=== PATIENT | female | born 1935 | race Caucasian/White ===

== ENCOUNTER 2017-06-08 18:57 | Inpatient (IN) | payer OTHER ==
[~2017-06-08] VITALS: Ht 170.2 cm; Wt 122.5 kg
[2017-06-08] MEDS ORDERED: SERT25TA3 PO (19:39)
[2017-06-08] MEDS ORDERED: POTA10TA31 PO (19:39)
[2017-06-08] MEDS ORDERED: SERT100T5 PO (19:39)
[2017-06-08] MEDS ORDERED: MINE120C TP (19:39)
[2017-06-08] MEDS ORDERED: METO25TA91 PO (19:39)
[2017-06-08] MEDS ORDERED: FESO8TAB PO (19:39)
[2017-06-08] MEDS ORDERED: ASPI-515 PO (19:39)
[2017-06-08] MEDS ORDERED: LEVO25TA4 PO (19:39)
[2017-06-08] MEDS ORDERED: FURO20TA3 PO (19:39)
[2017-06-08] MEDS ORDERED: NABU500T PO (19:39)
[2017-06-08] MEDS ORDERED: ACET-1757 PO (19:39)
[2017-06-08] MEDS ORDERED: CHOL2000 PO (19:39)
[2017-06-08] MEDS ORDERED: CALCIUM 600 PO (19:39)
[2017-06-08] MEDS ORDERED: HYDR-3237 PO (19:39)
[2017-06-08 19:47] LABS: BASOPHILS # (AUTO) 0.04 x10^3/uL (0-0.1); BASOPHILS % (AUTO) 0 % (0-1); EOSINOPHILS # (AUTO) 0.21 x10^3/uL (0-0.4); EOSINOPHILS % (AUTO) 2 % (1-7); LYMPHOCYTES # (AUTO) 1.09 x10^3/uL (1-3.4); LYMPHOCYTES % (AUTO) 9 % (22-44); MD NO; MEAN CORPUSCULAR HEMOGLOBIN 20.6 pg (27.0-34.8); MEAN CORPUSCULAR HGB CONC 31.2 g/dL (32.4-35.8); MEAN CORPUSCULAR VOLUME 66.1 fL (80-100); MEAN PLATELET VOLUME 8.7 fL (7.4-10.4); MONOCYTES # (AUTO) 0.85 x10^3/uL (0.2-0.8); MONOCYTES % (AUTO) 7 % (2-9); NEUTROPHILS # (AUTO) 9.48 x10^3/uL (1.8-6.8); NEUTROPHILS % (AUTO) 81 % (42-75); PLATELET COUNT 274 x10^3/uL (130-400); RED BLOOD COUNT 4.49 x10^6/uL (3.82-5.3); RED CELL DISTRIBUTION WIDTH 18.4 % (9.6-15.2)
[2017-06-08 19:58] LABS: ALBUMIN 3.3 g/dL (3.4-5.0); ANION GAP 8 mmol/L (5-15); CALCIUM 8.5 mg/dL (8.5-10.1); CHLORIDE 108 mmol/L (98-107)
[2017-06-08] MEDS ORDERED: NITR1PAT24 TD (19:59)
[2017-06-08 20:03] LABS: ALANINE AMINOTRANSFERASE 22 U/L (12-78); ALKALINE PHOSPHATASE 103 U/L (45-117); BILIRUBIN,TOTAL 0.8 mg/dL (0.2-1.0); CREATININE 1.23 mg/dL (0.55-1.02); TOTAL PROTEIN 7.4 g/dL (6.4-8.2)
[2017-06-08 20:08] LABS: CULTURE INDICATED? YES; MICROSCOPIC INDICATED
[2017-06-08] MEDS ORDERED: POTASSIUM CHLORIDE 20 MEQ TAB.ER.PRT PO ONE (20:30)
[2017-06-08] MEDS ORDERED: SODIUM CHLORIDE 0.9% 1,000ML IVBOLUS ONE (21:00)
[2017-06-08 22:44] LABS: FREE T4 (FREE THYROXINE) 1.56 ng/dL (0.76-1.46); THYROID STIMULATING HORMONE 2.03 mIU/L (0.358-3.740)
[2017-06-08] MEDS ORDERED: CEFTRIAXONE PMX 1GM/50ML 50 ML IV ONE (23:00)
[2017-06-08] MEDS ORDERED: OMNIPAQUE 350 MG/ML, 100ML BOTTLE ONE (23:00)
[2017-06-08] MEDS ORDERED: CEFTRIAXONE PMX 1GM/50ML 50 ML ONE (23:08)
[2017-06-08] MEDS ORDERED: POTASSIUM CHLORIDE 20 MEQ TAB.ER.PRT ONE (23:09)
[2017-06-08] MEDS ORDERED: ACETAMINOPHEN 325 MG TABLET PO PRN (23:30)
[2017-06-08] MEDS ORDERED: ONDANSETRON ODT 4 MG PO PRN (23:30)
[2017-06-08] MEDS ORDERED: ENOXAPARIN 40 MG/0.4 ML SQ SCH (23:30)
[2017-06-08] MEDS ORDERED: hydrALAzine 20 MG/ML, 1ML IVPush PRN (23:30)
[2017-06-08] MEDS ORDERED: DOCUSATE 100 MG CAPSULE PO PRN (23:30)
[2017-06-09] VITALS (8 sets, daily range): BP systolic 138–157; BP diastolic 54–81
[2017-06-09] MEDS: FUROSEMIDE 40 MG/4 ML IV SCH ×3 (00:26→17:00)
[2017-06-09] MEDS: HYDROcodone/APAP 5/325 TABLET PO SCH ×3 (00:26→18:18)
[2017-06-09 00:53] LABS: % IRON SATURATION 4 % (20-55); IRON LEVEL 15 mcg/dL (50-170); TOTAL IRON BINDING CAPACITY 396 mcg/dL (250-450)
[2017-06-09 08:08] LABS: INTERNATIONAL NORMALIZED RATIO 1.11 (0.93-1.1); PROTHROMBIN TIME 11.5 Seconds (9.6-11.5)
[2017-06-09 08:12] LABS: ANION GAP 10 mmol/L (5-15); CALCIUM 7.9 mg/dL (8.5-10.1); CHLORIDE 109 mmol/L (98-107); CREATININE 1.01 mg/dL (0.55-1.02)
[2017-06-09 08:13] LABS: BASOPHILS # (AUTO) 0.03 x10^3/uL (0-0.1); BASOPHILS % (AUTO) 0 % (0-1); EOSINOPHILS # (AUTO) 0.39 x10^3/uL (0-0.4); EOSINOPHILS % (AUTO) 5 % (1-7); LYMPHOCYTES # (AUTO) 1.04 x10^3/uL (1-3.4); LYMPHOCYTES % (AUTO) 14 % (22-44); MD NO; MEAN CORPUSCULAR HEMOGLOBIN 20.2 pg (27.0-34.8); MEAN CORPUSCULAR HGB CONC 30.6 g/dL (32.4-35.8); MEAN CORPUSCULAR VOLUME 66.2 fL (80-100); MEAN PLATELET VOLUME 8.6 fL (7.4-10.4); MONOCYTES # (AUTO) 0.79 x10^3/uL (0.2-0.8); MONOCYTES % (AUTO) 11 % (2-9); NEUTROPHILS # (AUTO) 5.14 x10^3/uL (1.8-6.8); NEUTROPHILS % (AUTO) 70 % (42-75); PLATELET COUNT 246 x10^3/uL (130-400); RED CELL DISTRIBUTION WIDTH 18.9 % (9.6-15.2)
[2017-06-09] MEDS: CHOLECALCIFEROL 1,000 UNIT TABLET PO SCH (09:00)
[2017-06-09] MEDS: NABUMETONE 500 MG TABLET PO SCH ×2 (09:00→22:39)
[2017-06-09] MEDS: LEVOTHYROXINE 25 MCG TABLET PO SCH (09:00)
[2017-06-09] MEDS: CALCIUM CITRATE 950 MG TABLET PO SCH (09:00)
[2017-06-09] MEDS: OXYBUTYNIN CHLORIDE 5 MG TABLET PO SCH ×2 (09:00→18:18)
[2017-06-09] MEDS: SERTRALINE 100MG TABLET PO SCH ×2 (09:00→23:10)
[2017-06-09] MEDS: POTASSIUM CHLORIDE 10 MEQ TABLET.ER PO SCH ×3 (09:00→22:39)
[2017-06-09] MEDS: METOPROLOL SUCCINATE 25 MG TAB.ER.24H PO SCH (09:00)
[2017-06-09] MEDS: ASPIRIN 81 MG TABLET EC PO SCH (09:00)
[2017-06-09] MEDS ORDERED: POTASSIUM CHLORIDE 40 MEQ in SODIUM CHLORIDE 0.9% 500 ML IV ONE (10:30)
[2017-06-09] MEDS ORDERED: NALOXONE 1 MG/ML, 2ML ONE (14:31)
[2017-06-09] MEDS ORDERED: FENTANYL PF 100 MCG/2ML ONE (14:31)
[2017-06-09] MEDS ORDERED: FLUMAZENIL 0.1 MG/1 ML, 5ML ONE (14:31)
[2017-06-09] MEDS ORDERED: MIDAZOLAM 1 MG/ML, 5ML ONE (14:31)
[2017-06-09] MEDS ORDERED: LIDOCAINE-MPF 1%, 5ML ONE (14:32)
[2017-06-09 18:25] LABS: CREATININE,URINE RANDOM 53.4 mg/dL
[2017-06-09] MEDS: CEFTRIAXONE PMX 1GM/50ML 50 ML IV SCH (22:39)
[2017-06-09] MEDS: POTASSIUM CHLORIDE 10% 20 MEQ/15 ML UDC PO SCH (23:00)
[2017-06-09] MEDS ORDERED: POTASSIUM CHLORIDE 10% 40 MEQ/30 ML UDC ONE ×2 (23:00→23:01)
[2017-06-10 00:03] VITALS: BP 148/71
[2017-06-10] MEDS: HYDROcodone/APAP 5/325 TABLET PO SCH ×3 (02:00→21:45)
[2017-06-10 05:26] LABS: BASOPHILS # (AUTO) 0.05 x10^3/uL (0-0.1); BASOPHILS % (AUTO) 1 % (0-1); EOSINOPHILS # (AUTO) 0.41 x10^3/uL (0-0.4); EOSINOPHILS % (AUTO) 5 % (1-7); LYMPHOCYTES # (AUTO) 1.22 x10^3/uL (1-3.4); LYMPHOCYTES % (AUTO) 15 % (22-44); MD NO; MEAN CORPUSCULAR HEMOGLOBIN 20.9 pg (27.0-34.8); MEAN CORPUSCULAR HGB CONC 31.2 g/dL (32.4-35.8); MEAN PLATELET VOLUME 8.2 fL (7.4-10.4); MONOCYTES # (AUTO) 0.92 x10^3/uL (0.2-0.8); MONOCYTES % (AUTO) 11 % (2-9); NEUTROPHILS # (AUTO) 5.71 x10^3/uL (1.8-6.8); NEUTROPHILS % (AUTO) 69 % (42-75); PLATELET COUNT 220 x10^3/uL (130-400); RED BLOOD COUNT 4.44 x10^6/uL (3.82-5.3); RED CELL DISTRIBUTION WIDTH 18.9 % (9.6-15.2)
[2017-06-10 05:40] LABS: ANION GAP 10 mmol/L (5-15); CALCIUM 8.4 mg/dL (8.5-10.1); CHLORIDE 107 mmol/L (98-107)
[2017-06-10 05:47] LABS: CREATININE 0.99 mg/dL (0.55-1.02)
[2017-06-10] MEDS: LEVOTHYROXINE 25 MCG TABLET PO SCH (05:51)
[2017-06-10] MEDS ORDERED: POTASSIUM CHLORIDE 20 MEQ TAB.ER.PRT PO ONE (06:30)
[2017-06-10 08:00] VITALS: BP 116/67
[2017-06-10] MEDS: METOPROLOL SUCCINATE 25 MG TAB.ER.24H PO SCH (09:00)
[2017-06-10] MEDS: ASPIRIN 81 MG TABLET EC PO SCH (09:00)
[2017-06-10] MEDS ORDERED: POTASSIUM CHLORIDE 20 MEQ PACKET ONE (09:52)
[2017-06-10] MEDS ORDERED: AMIODARONE 150 MG in DEXTROSE 5% 100 ML IV ONE (10:00)
[2017-06-10] MEDS ORDERED: FILTER 0.22 MICRON IV ONE (10:00)
[2017-06-10] MEDS ORDERED: AMIODARONE 50 MG/ML, 3ML IVPush ONE (10:00)
[2017-06-10] MEDS: CHOLECALCIFEROL 1,000 UNIT TABLET PO SCH (10:08)
[2017-06-10] MEDS: NABUMETONE 500 MG TABLET PO SCH ×2 (10:09→21:45)
[2017-06-10] MEDS: CALCIUM CITRATE 950 MG TABLET PO SCH (10:10)
[2017-06-10] MEDS: SERTRALINE 100MG TABLET PO SCH (10:11)
[2017-06-10] MEDS: FUROSEMIDE 20 MG/2 ML IV SCH ×2 (10:18→18:36)
[2017-06-10] MEDS ORDERED: POTASSIUM CHLORIDE 20 MEQ TAB.ER.PRT ONE (10:24)
[2017-06-10] MEDS: AMIODARONE 200 MG TABLET PO SCH ×2 (10:40→23:54)
[2017-06-10] MEDS: POTASSIUM CHLORIDE 10% 20 MEQ/15 ML UDC PO SCH ×2 (10:40→21:45)
[2017-06-10 14:30] VITALS: BP 110/62
[2017-06-10] MEDS ORDERED: FERROUS SULFATE 325 MG TABLET PO SCH (17:00)
[2017-06-10 20:18] VITALS: BP 107/73
[2017-06-10] MEDS: CEFTRIAXONE PMX 1GM/50ML 50 ML IV SCH (21:45)
[2017-06-10] MEDS ORDERED: DOCUSATE 50 MG/5 ML, 10ML UDC PO PRN (23:30)
[2017-06-11 02:42] VITALS: BP 144/82
[2017-06-11] MEDS: HYDROcodone/APAP 5/325 TABLET PO SCH (05:00)
[2017-06-11 05:35] LABS: BASOPHILS # (AUTO) 0.07 x10^3/uL (0-0.1); BASOPHILS % (AUTO) 1 % (0-1); EOSINOPHILS # (AUTO) 0.54 x10^3/uL (0-0.4); EOSINOPHILS % (AUTO) 7 % (1-7); LYMPHOCYTES # (AUTO) 1.72 x10^3/uL (1-3.4); LYMPHOCYTES % (AUTO) 21 % (22-44); MD NO; MEAN CORPUSCULAR HEMOGLOBIN 20.8 pg (27.0-34.8); MEAN CORPUSCULAR HGB CONC 30.8 g/dL (32.4-35.8); MEAN CORPUSCULAR VOLUME 67.5 fL (80-100); MEAN PLATELET VOLUME 9.5 fL (7.4-10.4); MONOCYTES # (AUTO) 1.06 x10^3/uL (0.2-0.8); MONOCYTES % (AUTO) 13 % (2-9); NEUTROPHILS # (AUTO) 4.83 x10^3/uL (1.8-6.8); NEUTROPHILS % (AUTO) 59 % (42-75); PLATELET COUNT 232 x10^3/uL (130-400); RED BLOOD COUNT 4.13 x10^6/uL (3.82-5.3)
[2017-06-11 05:57] LABS: CHLORIDE 109 mmol/L (98-107)
[2017-06-11 06:19] LABS: ANION GAP 8 mmol/L (5-15); CALCIUM 8.6 mg/dL (8.5-10.1)
[2017-06-11 07:51] VITALS: BP 128/97
[2017-06-11] MEDS: METOPROLOL SUCCINATE 25 MG TAB.ER.24H PO SCH (08:30)
[2017-06-11] MEDS: ASPIRIN 81 MG TABLET EC PO SCH (08:30)
[2017-06-11] MEDS: AMIODARONE 200 MG TABLET PO SCH ×2 (08:59→22:16)
[2017-06-11] MEDS: NABUMETONE 500 MG TABLET PO SCH ×2 (08:59→22:15)
[2017-06-11] MEDS: FUROSEMIDE 20 MG/2 ML IV SCH (08:59)
[2017-06-11] MEDS: CHOLECALCIFEROL 1,000 UNIT TABLET PO SCH (08:59)
[2017-06-11] MEDS: POTASSIUM CHLORIDE 10% 20 MEQ/15 ML UDC PO SCH ×2 (09:00→22:26)
[2017-06-11] MEDS ORDERED: FERROUS SULFATE 220 MG/5 ML ORAL SOL PO SCH (09:00)
[2017-06-11] MEDS: HYDROcodone/APAP 7.5-325MG/15ML UDC PO SCH ×3 (09:00→22:15)
[2017-06-11] MEDS: CALCIUM CITRATE 950 MG TABLET PO SCH (10:05)
[2017-06-11 13:07] VITALS: BP_SYST 110; BP_SYST 144; BP_DIAS 101; BP_DIAS 65
[2017-06-11] MEDS: METOPROLOL TARTRATE 25 MG TABLET PO SCH (17:05)
[2017-06-11 19:58] VITALS: BP 133/78
[2017-06-12 00:59] VITALS: BP 117/73
[2017-06-12] MEDS: CEFTRIAXONE PMX 1GM/50ML 50 ML IV SCH ×2 (02:58→23:12)
[2017-06-12 05:37] LABS: BASOPHILS # (AUTO) 0.04 x10^3/uL (0-0.1); BASOPHILS % (AUTO) 0 % (0-1); EOSINOPHILS # (AUTO) 0.58 x10^3/uL (0-0.4); EOSINOPHILS % (AUTO) 6 % (1-7); LYMPHOCYTES # (AUTO) 1.48 x10^3/uL (1-3.4); LYMPHOCYTES % (AUTO) 16 % (22-44); MD NO; MEAN CORPUSCULAR HEMOGLOBIN 20.9 pg (27.0-34.8); MEAN CORPUSCULAR HGB CONC 30.9 g/dL (32.4-35.8); MEAN CORPUSCULAR VOLUME 67.6 fL (80-100); MEAN PLATELET VOLUME 9.2 fL (7.4-10.4); MONOCYTES # (AUTO) 0.96 x10^3/uL (0.2-0.8); MONOCYTES % (AUTO) 10 % (2-9); NEUTROPHILS # (AUTO) 6.17 x10^3/uL (1.8-6.8); NEUTROPHILS % (AUTO) 67 % (42-75); PLATELET COUNT 233 x10^3/uL (130-400); RED BLOOD COUNT 4.15 x10^6/uL (3.82-5.3); RED CELL DISTRIBUTION WIDTH 18.9 % (9.6-15.2)
[2017-06-12 05:42] LABS: ANION GAP 6 mmol/L (5-15); CALCIUM 8.5 mg/dL (8.5-10.1); CHLORIDE 109 mmol/L (98-107)
[2017-06-12 05:43] LABS: CREATININE 1.01 mg/dL (0.55-1.02)
[2017-06-12] MEDS: METOPROLOL TARTRATE 25 MG TABLET PO SCH ×2 (06:22→17:25)
[2017-06-12 07:39] VITALS: BP 140/79
[2017-06-12] MEDS ORDERED: FUROSEMIDE 10 MG/ML ORAL SOL PO SCH (09:00)
[2017-06-12] MEDS: ASPIRIN 81 MG TABLET EC PO SCH (09:00)
[2017-06-12] MEDS: HYDROcodone/APAP 7.5-325MG/15ML UDC PO SCH ×3 (09:00→21:50)
[2017-06-12] MEDS: CHOLECALCIFEROL 1,000 UNIT TABLET PO SCH (09:07)
[2017-06-12] MEDS: SERTRALINE 100MG TABLET PO SCH (09:07)
[2017-06-12] MEDS: NABUMETONE 500 MG TABLET PO SCH ×2 (09:07→21:49)
[2017-06-12] MEDS: CALCIUM CITRATE 950 MG TABLET PO SCH (09:08)
[2017-06-12] MEDS: AMIODARONE 200 MG TABLET PO SCH ×2 (09:08→21:49)
[2017-06-12] MEDS: POTASSIUM CHLORIDE 10% 20 MEQ/15 ML UDC PO SCH ×2 (09:08→21:00)
[2017-06-12] MEDS: HEPARIN 5,000 UNITS/ML, 1ML SQ SCH ×2 (11:00→21:49)
[2017-06-12 13:31] VITALS: BP 165/74
[2017-06-12] MEDS ORDERED: MOVIPREP POWDER 1 PREP KIT PO ONE (17:00)
[2017-06-12 18:45] VITALS: BP 148/66
[2017-06-12 20:56] LABS: OCCULT BLOOD NEGATIVE (NEGATIVE)
[2017-06-12] MEDS ORDERED: POTASSIUM CHLORIDE 10 MEQ TABLET.ER ONE (21:58)
[2017-06-12] MEDS ORDERED: POTASSIUM CHLORIDE 10% ORAL 20 MEQ/15 ML ORAL.SOL PO SCH (23:23)
[2017-06-13 00:52] VITALS: BP 146/83
[2017-06-13] MEDS: METOPROLOL TARTRATE 25 MG TABLET PO SCH ×2 (06:00→18:39)
[2017-06-13] MEDS: HEPARIN 5,000 UNITS/ML, 1ML SQ SCH ×3 (06:09→23:04)
[2017-06-13 07:03] LABS: BASOPHILS # (AUTO) 0.04 x10^3/uL (0-0.1); BASOPHILS % (AUTO) 1 % (0-1); EOSINOPHILS # (AUTO) 0.56 x10^3/uL (0-0.4); EOSINOPHILS % (AUTO) 8 % (1-7); LYMPHOCYTES # (AUTO) 1.18 x10^3/uL (1-3.4); LYMPHOCYTES % (AUTO) 17 % (22-44); MD NO; MEAN CORPUSCULAR HEMOGLOBIN 20.5 pg (27.0-34.8); MEAN CORPUSCULAR HGB CONC 30.5 g/dL (32.4-35.8); MEAN CORPUSCULAR VOLUME 67.1 fL (80-100); MEAN PLATELET VOLUME 9.2 fL (7.4-10.4); MONOCYTES # (AUTO) 0.77 x10^3/uL (0.2-0.8); MONOCYTES % (AUTO) 11 % (2-9); NEUTROPHILS # (AUTO) 4.29 x10^3/uL (1.8-6.8); NEUTROPHILS % (AUTO) 63 % (42-75); PLATELET COUNT 219 x10^3/uL (130-400); RED BLOOD COUNT 4.15 x10^6/uL (3.82-5.3); RED CELL DISTRIBUTION WIDTH 19.6 % (9.6-15.2)
[2017-06-13 07:10] LABS: ANION GAP 4 mmol/L (5-15); CALCIUM 8.3 mg/dL (8.5-10.1); CHLORIDE 108 mmol/L (98-107); CREATININE 0.91 mg/dL (0.55-1.02)
[2017-06-13 08:35] VITALS: BP 148/73
[2017-06-13] MEDS: ASPIRIN 81 MG TABLET EC PO SCH (09:00)
[2017-06-13] MEDS: POTASSIUM CHLORIDE 10% ORAL 20 MEQ/15 ML ORAL.SOL PO SCH ×2 (09:00→23:49)
[2017-06-13] MEDS ORDERED: FUROSEMIDE 40 MG TABLET ONE (09:55)
[2017-06-13] MEDS: AMIODARONE 200 MG TABLET PO SCH ×2 (10:08→23:04)
[2017-06-13] MEDS: CHOLECALCIFEROL 1,000 UNIT TABLET PO SCH (10:08)
[2017-06-13] MEDS: FUROSEMIDE 40 MG TABLET PO SCH (10:09)
[2017-06-13] MEDS: SERTRALINE 100MG TABLET PO SCH (10:09)
[2017-06-13] MEDS: CALCIUM CITRATE 950 MG TABLET PO SCH (10:09)
[2017-06-13] MEDS: NABUMETONE 500 MG TABLET PO SCH ×2 (10:43→23:04)
[2017-06-13] MEDS: HYDROcodone/APAP 7.5-325MG/15ML UDC PO SCH ×2 (10:43→18:39)
[2017-06-13 12:27] VITALS: BP 127/75
[2017-06-13] MEDS ORDERED: GOLYTELY 4,000ML ORAL.SOL PO ONE (15:00)
[2017-06-13] MEDS: MOVIPREP POWDER 1 PREP KIT PO SCH ×2 (15:47→20:06)
[2017-06-13] MEDS ORDERED: IRON DEXTRAN IV PER PHARMACY IV PRN (17:30)
[2017-06-13 18:37] VITALS: BP 164/87
[2017-06-13] MEDS: IRON SUCROSE COMPLEX 100MG/5ML IV SCH (18:39)
[2017-06-13 18:59] VITALS: BP 160/73
[2017-06-13] MEDS: CEFTRIAXONE PMX 1GM/50ML 50 ML IV SCH (23:05)
[2017-06-14 01:22] VITALS: BP 159/73
[2017-06-14] MEDS: HYDROcodone/APAP 7.5-325MG/15ML UDC PO SCH ×3 (02:43→18:43)
[2017-06-14] MEDS: METOPROLOL TARTRATE 25 MG TABLET PO SCH ×2 (05:52→09:15)
[2017-06-14] MEDS: HEPARIN 5,000 UNITS/ML, 1ML SQ SCH ×3 (05:53→22:00)
[2017-06-14 06:06] LABS: BASOPHILS # (AUTO) 0.06 x10^3/uL (0-0.1); BASOPHILS % (AUTO) 1 % (0-1); EOSINOPHILS # (AUTO) 0.56 x10^3/uL (0-0.4); EOSINOPHILS % (AUTO) 9 % (1-7); LYMPHOCYTES # (AUTO) 1.14 x10^3/uL (1-3.4); LYMPHOCYTES % (AUTO) 19 % (22-44); MD NO; MEAN CORPUSCULAR HGB CONC 31.1 g/dL (32.4-35.8); MEAN CORPUSCULAR VOLUME 67.4 fL (80-100); MONOCYTES # (AUTO) 0.73 x10^3/uL (0.2-0.8); MONOCYTES % (AUTO) 12 % (2-9); NEUTROPHILS # (AUTO) 3.57 x10^3/uL (1.8-6.8); NEUTROPHILS % (AUTO) 59 % (42-75); PLATELET COUNT 212 x10^3/uL (130-400); RED BLOOD COUNT 4.36 x10^6/uL (3.82-5.3); RED CELL DISTRIBUTION WIDTH 19.1 % (9.6-15.2)
[2017-06-14 06:18] LABS: ANION GAP 5 mmol/L (5-15); CALCIUM 8.5 mg/dL (8.5-10.1); CHLORIDE 111 mmol/L (98-107)
[2017-06-14 06:59] VITALS: BP 154/72
[2017-06-14] MEDS: NABUMETONE 500 MG TABLET PO SCH ×2 (08:59→21:06)
[2017-06-14] MEDS: AMIODARONE 200 MG TABLET PO SCH ×2 (08:59→21:06)
[2017-06-14] MEDS ORDERED: PROPOFOL 10 MG/ML, 20ML ONE (10:35)
[2017-06-14] MEDS: SERTRALINE 100MG TABLET PO SCH (12:09)
[2017-06-14] MEDS: FUROSEMIDE 40 MG TABLET PO SCH (12:09)
[2017-06-14] MEDS: CHOLECALCIFEROL 1,000 UNIT TABLET PO SCH (12:09)
[2017-06-14] MEDS: CALCIUM CITRATE 950 MG TABLET PO SCH (12:10)
[2017-06-14] MEDS: ASPIRIN 81 MG TABLET EC PO SCH (12:10)
[2017-06-14] MEDS: POTASSIUM CHLORIDE 10% ORAL 20 MEQ/15 ML ORAL.SOL PO SCH ×2 (12:10→21:06)
[2017-06-14 12:15] VITALS: BP 139/81
[2017-06-14] MEDS ORDERED: MOVIPREP POWDER 1 PREP KIT PO ONE (15:00)
[2017-06-14] MEDS: IRON SUCROSE COMPLEX 100MG/5ML IV SCH (18:38)
[2017-06-14 19:40] VITALS: BP 157/84
[2017-06-15] MEDS: CEFTRIAXONE PMX 1GM/50ML 50 ML IV SCH ×2 (00:24→23:17)
[2017-06-15 00:25] VITALS: BP 143/82
[2017-06-15] MEDS: HYDROcodone/APAP 7.5-325MG/15ML UDC PO SCH ×3 (02:43→18:21)
[2017-06-15] MEDS: HEPARIN 5,000 UNITS/ML, 1ML SQ SCH ×3 (06:00→23:17)
[2017-06-15 06:55] VITALS: BP 163/91
[2017-06-15 07:35] LABS: BASOPHILS # (AUTO) 0.06 x10^3/uL (0-0.1); BASOPHILS % (AUTO) 1 % (0-1); EOSINOPHILS % (AUTO) 8 % (1-7); LYMPHOCYTES # (AUTO) 1.11 x10^3/uL (1-3.4); LYMPHOCYTES % (AUTO) 19 % (22-44); MD NO; MEAN CORPUSCULAR HEMOGLOBIN 20.5 pg (27.0-34.8); MEAN CORPUSCULAR HGB CONC 30.5 g/dL (32.4-35.8); MEAN CORPUSCULAR VOLUME 67.3 fL (80-100); MEAN PLATELET VOLUME 8.4 fL (7.4-10.4); MONOCYTES # (AUTO) 0.67 x10^3/uL (0.2-0.8); MONOCYTES % (AUTO) 11 % (2-9); NEUTROPHILS # (AUTO) 3.65 x10^3/uL (1.8-6.8); NEUTROPHILS % (AUTO) 61 % (42-75); PLATELET COUNT 195 x10^3/uL (130-400); RED BLOOD COUNT 4.49 x10^6/uL (3.82-5.3); RED CELL DISTRIBUTION WIDTH 19.4 % (9.6-15.2)
[2017-06-15 07:47] LABS: ANION GAP 4 mmol/L (5-15); CALCIUM 8.8 mg/dL (8.5-10.1); CHLORIDE 111 mmol/L (98-107)
[2017-06-15] MEDS: AMIODARONE 200 MG TABLET PO SCH ×2 (08:34→22:18)
[2017-06-15] MEDS: FUROSEMIDE 40 MG TABLET PO SCH (08:34)
[2017-06-15] MEDS: SERTRALINE 100MG TABLET PO SCH (08:34)
[2017-06-15] MEDS: CALCIUM CITRATE 950 MG TABLET PO SCH (09:00)
[2017-06-15] MEDS: POTASSIUM CHLORIDE 10% ORAL 20 MEQ/15 ML ORAL.SOL PO SCH ×2 (09:00→22:17)
[2017-06-15] MEDS: NABUMETONE 500 MG TABLET PO SCH ×2 (09:00→22:18)
[2017-06-15] MEDS: CHOLECALCIFEROL 1,000 UNIT TABLET PO SCH (09:00)
[2017-06-15] MEDS ORDERED: POTASSIUM CHLORIDE 40 MEQ in SODIUM CHLORIDE 0.9% 500 ML IV ONE (09:30)
[2017-06-15] MEDS ORDERED: MIDAZOLAM 1 MG/ML, 2ML ONE (12:22)
[2017-06-15] MEDS ORDERED: FENTANYL PF 100 MCG/2ML ONE (12:22)
[2017-06-15] MEDS ORDERED: PROPOFOL 10 MG/ML, 20ML ONE (12:33)
[2017-06-15] MEDS ORDERED: MEPERIDINE/PF 25MG/0.5ML IVPush PRN (14:00)
[2017-06-15] MEDS ORDERED: LABETALOL 5MG/ML, 20ML IV PRN (14:00)
[2017-06-15] MEDS ORDERED: MORPHINE SULFATE 4 MG/ML, 1ML IVPush PRN (14:00)
[2017-06-15] MEDS ORDERED: ONDANSETRON ODT 8 MG PO PRN (14:00)
[2017-06-15] MEDS ORDERED: OXYcodone 5 MG/5 ML ORAL.SOL UDC PO PRN (14:00)
[2017-06-15] MEDS ORDERED: FENTANYL PF 100 MCG/2ML IV PRN (14:00)
[2017-06-15] MEDS ORDERED: ACETAMINOPHEN 325 MG TABLET PO PRN (14:00)
[2017-06-15] MEDS ORDERED: hydrALAzine 20 MG/ML, 1ML IV PRN (14:00)
[2017-06-15 14:45] VITALS: BP 164/77
[2017-06-15] MEDS: ASPIRIN 81 MG TABLET EC PO SCH (14:51)
[2017-06-15] MEDS: IRON SUCROSE COMPLEX 100MG/5ML IV SCH (18:20)
[2017-06-15 20:00] VITALS: BP 145/72
[2017-06-16 02:00] VITALS: BP 135/75
[2017-06-16] MEDS: HYDROcodone/APAP 7.5-325MG/15ML UDC PO SCH ×4 (02:43→22:46)
[2017-06-16 06:35] VITALS: BP 132/71
[2017-06-16] MEDS: ASPIRIN 81 MG TABLET EC PO SCH (08:56)
[2017-06-16] MEDS: POTASSIUM CHLORIDE 10% ORAL 20 MEQ/15 ML ORAL.SOL PO SCH ×2 (08:56→21:00)
[2017-06-16] MEDS: AMIODARONE 200 MG TABLET PO SCH ×2 (08:57→21:00)
[2017-06-16] MEDS: SERTRALINE 100MG TABLET PO SCH (08:58)
[2017-06-16] MEDS: CALCIUM CITRATE 950 MG TABLET PO SCH (08:58)
[2017-06-16] MEDS: NABUMETONE 500 MG TABLET PO SCH ×2 (08:58→22:47)
[2017-06-16] MEDS: CHOLECALCIFEROL 1,000 UNIT TABLET PO SCH (08:59)
[2017-06-16] MEDS: HEPARIN 5,000 UNITS/ML, 1ML SQ SCH ×2 (08:59→17:20)
[2017-06-16] MEDS: FUROSEMIDE 40 MG TABLET PO SCH (08:59)
[2017-06-16 13:25] VITALS: BP 137/75
[2017-06-16] MEDS ORDERED: MAGNESIUM SULFATE PMX 2GM/50ML 50 ML IV ONE (13:30)
[2017-06-16] MEDS: IRON SUCROSE COMPLEX 100MG/5ML IV SCH (17:20)
[2017-06-16 19:59] VITALS: BP 137/82
[2017-06-17 01:45] VITALS: BP 159/80
[2017-06-17] MEDS: HEPARIN 5,000 UNITS/ML, 1ML SQ SCH ×3 (01:46→17:20)
[2017-06-17] MEDS: HYDROcodone/APAP 7.5-325MG/15ML UDC PO SCH ×2 (05:30→14:33)
[2017-06-17 05:31] LABS: ANION GAP 7 mmol/L (5-15); CALCIUM 8.6 mg/dL (8.5-10.1); CHLORIDE 108 mmol/L (98-107)
[2017-06-17 05:33] LABS: CREATININE 0.91 mg/dL (0.55-1.02)
[2017-06-17 05:44] LABS: BASOPHILS # (AUTO) 0.06 x10^3/uL (0-0.1); BASOPHILS % (AUTO) 1 % (0-1); EOSINOPHILS # (AUTO) 0.59 x10^3/uL (0-0.4); EOSINOPHILS % (AUTO) 8 % (1-7); LYMPHOCYTES # (AUTO) 1.65 x10^3/uL (1-3.4); LYMPHOCYTES % (AUTO) 23 % (22-44); MD NO; MEAN CORPUSCULAR HEMOGLOBIN 21.2 pg (27.0-34.8); MEAN CORPUSCULAR HGB CONC 31.3 g/dL (32.4-35.8); MEAN CORPUSCULAR VOLUME 67.9 fL (80-100); MEAN PLATELET VOLUME 8.6 fL (7.4-10.4); MONOCYTES # (AUTO) 0.69 x10^3/uL (0.2-0.8); MONOCYTES % (AUTO) 9 % (2-9); NEUTROPHILS % (AUTO) 59 % (42-75); PLATELET COUNT 192 x10^3/uL (130-400); RED BLOOD COUNT 4.36 x10^6/uL (3.82-5.3); RED CELL DISTRIBUTION WIDTH 19.3 % (9.6-15.2)
[2017-06-17] MEDS ORDERED: OMEPRAZOLE 20 MG CAPSULE.DR PO SCH (07:30)
[2017-06-17 07:35] VITALS: BP 147/88
[2017-06-17 07:39] VITALS: BP 144/74
[2017-06-17] MEDS: POTASSIUM CHLORIDE 10% ORAL 20 MEQ/15 ML ORAL.SOL PO SCH (09:00)
[2017-06-17] MEDS ORDERED: POTASSIUM CHLORIDE 20 MEQ TAB.ER.PRT PO SCH (09:00)
[2017-06-17] MEDS: CALCIUM CITRATE 950 MG TABLET PO SCH (09:13)
[2017-06-17] MEDS: SERTRALINE 100MG TABLET PO SCH (09:14)
[2017-06-17] MEDS: ASPIRIN 81 MG TABLET EC PO SCH (09:14)
[2017-06-17] MEDS: AMIODARONE 200 MG TABLET PO SCH (09:14)
[2017-06-17] MEDS: NABUMETONE 500 MG TABLET PO SCH (09:14)
[2017-06-17] MEDS: FUROSEMIDE 40 MG TABLET PO SCH (09:14)
[2017-06-17] MEDS: CHOLECALCIFEROL 1,000 UNIT TABLET PO SCH (09:14)
[2017-06-17 13:09] VITALS: BP 183/84
[2017-06-17 14:04] VITALS: BP 157/78
[2017-06-17] MEDS ORDERED: FURO40TA6 PO (15:17)
[2017-06-17] MEDS ORDERED: POTA20TA6 PO (15:17)
[2017-06-17] MEDS ORDERED: AMIO200T42 PO (15:17)
[2017-06-17] MEDS: IRON SUCROSE COMPLEX 100MG/5ML IV SCH (16:00)
== END 2017-06-17 18:00 | DRG 871 ==
LOC: ED 22:58 → EDIP 23:27 → 5SO 06-09 → 4WST 06-13 07:35
PROVIDERS: ADMIT Internal Medicine; ATTEND Internal Medicine
PROC: 0CJS8ZZ Inspection of Larynx, Via Natural or Artificial Opening Endoscopic (ICD-10-PCS; principal; 2017-06-08)
PROC: 0WBC3ZX Excision of Mediastinum, Percutaneous Approach, Diagnostic (ICD-10-PCS; 2017-06-09)
PROC: 0DB98ZX Excision of Duodenum, Via Natural or Artificial Opening Endoscopic, Diagnostic (ICD-10-PCS; 2017-06-14)
PROC: 0DBN8ZZ Excision of Sigmoid Colon, Via Natural or Artificial Opening Endoscopic (ICD-10-PCS; 2017-06-16)
DX: A41.9 Sepsis, unspecified organism (principal); J96.01 Acute respiratory failure with hypoxia; I50.33 Acute on chronic diastolic (congestive) heart failure; D68.69 Other thrombophilia; E66.01 Morbid (severe) obesity due to excess calories; F33.0 Major depressive disorder, recurrent, mild; Z68.41 Body mass index [BMI] 40.0-44.9, adult; J44.1 Chronic obstructive pulmonary disease with (acute) exacerbation; J98.11 Atelectasis; I11.0 Hypertensive heart disease with heart failure; I27.20 Pulmonary hypertension, unspecified; D50.9 Iron deficiency anemia, unspecified; E03.9 Hypothyroidism, unspecified; E04.9 Nontoxic goiter, unspecified; E87.6 Hypokalemia; I44.0 Atrioventricular block, first degree; I87.8 Other specified disorders of veins; J39.8 Other specified diseases of upper respiratory tract; K44.9 Diaphragmatic hernia without obstruction or gangrene; K57.30 Diverticulosis of large intestine without perforation or abscess without bleeding; K64.8 Other hemorrhoids; M17.10 Unilateral primary osteoarthritis, unspecified knee; M19.072 Primary osteoarthritis, left ankle and foot; M85.80 Other specified disorders of bone density and structure, unspecified site; K63.5 Polyp of colon; N30.91 Cystitis, unspecified with hematuria; R80.9 Proteinuria, unspecified; R22.2 Localized swelling, mass and lump, trunk; I48.91 Unspecified atrial fibrillation; R13.10 Dysphagia, unspecified; Z83.3 Family history of diabetes mellitus; Z87.891 Personal history of nicotine dependence; Z99.81 Dependence on supplemental oxygen; Z90.49 Acquired absence of other specified parts of digestive tract; Z90.89 Acquired absence of other organs
CPT/HCPCS: 32405; 36415; 51702; 71045; 71275; 74230; 77012; 80048; 80053; 81001; 82272; 82570; 82728; 82784; 83516; 83540; 83550; 83735; 83880; 84100; 84156; 84439; 84443; 84481; 84484; 85025; 85610; 85730; 86255; 87077; 87086; 88305; 93005; 93306; 93970; 96365; 99156; 99157; C2613; J0696; J1644; J1650; J1756; J1940; J2250; J2704; J3010; J3480; Q9967; J0282; J0360; J2310; J3475; J7030; J7040